=== PATIENT | female | born 1930 | race African-American/Black ===

== ENCOUNTER 2020-08-31 15:58 | Inpatient (IN) ==
[2020-08-31] MEDS ORDERED: SODIUM CHLORIDE 0.9% 500 ML IV STA (16:41)
[2020-08-31] MEDS ORDERED: cefTRIAXone 1,000 MG in SODIUM CHLORIDE 0.9% 100 ML IV STA (17:40)
[2020-08-31 18:09] LABS: Basophils % 0.1 % (0.0-0.8); Eosinophils # 0.1 10*3/uL (0.0-0.87); Eosinophils % 0.7 % (0.00-10.9); Hematocrit 45.3 VOL% (35.7-47.0); Hemoglobin 14.8 GM/DL (12.0-16.0); Immature Granulocytes % 0.5 %; Immature Granulocytes Absolute 0.04 #; Lymphocytes # 1.1 10*3/uL (1.4-4.0); Lymphocytes % 13.9 % (21.3-54.2); Mean Corpuscular HGB Conc 32.7 GM/DL (32-36); Mean Corpuscular Volume 97.6 FL (87-102); Monocytes % 12.3 % (1.7-12.7); Neutrophils % 72.5 % (38.7-73.9); Platelet Count 114 T/CUMM (130-400); Red Blood Count 4.64 MC/CUMM (3.8-5.5); Red Cell Distribution Width 13.8 % (9.3-17.3); White Blood Count 7.6 T/CUMM (4-12)
[2020-08-31 18:40] LABS: Bacteria,Urine Occasional /HPF (Few); Bilirubin,Urine Negative (Negative); Blood, Urine Negative (Negative); Glucose,Urine (UA) Negative (Negative); Ketones,Urine Negative (Negative); Nitrite,Urine Negative (Negative); Protein,Urine Negative; RBC,Urine 1 /HPF (0-4); Squamous Epithelial Cell,Urine Occasional /HPF (0-10); Urine Appearance CLEAR (Clear); Urine Color Yellow (Yellow); Urine Specific Gravity 1.003 (1.001-1.035); Urine Urobilinogen < 2.0 EU/DL (0.2-1.0); WBC,Urine 4 /HPF (0-6)
[2020-08-31 18:41] LABS: Albumin 2.3 G/DL (3.4-5.0); Bilirubin,Total 1.2 MG/DL (0.2-1.0); Calcium 11.2 MG/DL (8.5-10.1); Osmolality,Calculated 267.5 MOS/KG (273-304)
[2020-08-31 19:04] LABS: PT Patient Result 78.8 SECS (9.8-11.9)
[2020-08-31 19:08] LABS: INR 8.2
[2020-08-31] MEDS ORDERED: ONDANSETRON 4 MG/2 ML VIAL IV STA (19:24)
[2020-08-31] MEDS ORDERED: ONDANSETRON 4 MG/2 ML VIAL IV PRN (20:03)
[2020-08-31] MEDS ORDERED: traZODone 50 MG TABLET PO PRN (20:03)
[2020-08-31] MEDS ORDERED: guaiFENesin/DM ER 600-30 MG TABLET PO PRN (20:03)
[2020-08-31] MEDS ORDERED: NICOTINE 21 MG/24 HR PATCH TRANSDERM PRN (20:03)
[2020-08-31] MEDS ORDERED: hydrALAZINE 20 MG/1 ML VIAL IV PRN (20:03)
[2020-08-31] MEDS ORDERED: ACETAMINOPHEN 325 MG TABLET PO PRN (20:03)
[2020-08-31] MEDS ORDERED: diphenhydrAMINE CAP 25 MG CAPSULE PO PRN (20:03)
[2020-08-31] MEDS ORDERED: DEXTROSE 50% 25 GM/50 ML VIAL IV PRN (20:03)
[2020-08-31] MEDS ORDERED: GLUCAGON 1 MG VIAL IM PRN (20:03)
[2020-09-01 05:29] LABS: Basophils % 0.3 % (0.0-0.8); Eosinophils % 0.6 % (0.00-10.9); Hematocrit 42.4 VOL% (35.7-47.0); Hemoglobin 14.6 GM/DL (12.0-16.0); Immature Granulocytes % 0.4 %; Immature Granulocytes Absolute 0.03 #; Lymphocytes # 0.9 10*3/uL (1.4-4.0); Lymphocytes % 12.4 % (21.3-54.2); Mean Corpuscular HGB Conc 34.4 GM/DL (32-36); Mean Corpuscular Volume 94.2 FL (87-102); Monocytes % 13.1 % (1.7-12.7); Neutrophils % 73.2 % (38.7-73.9); Platelet Count 81 T/CUMM (130-400); Red Cell Distribution Width 13.9 % (9.3-17.3)
[2020-09-01] MEDS ORDERED: PHYTONADIONE 10 MG/1 ML AMP SUBCUT ONE (05:50)
[2020-09-01 06:08] LABS: Platelet Estimate Decreased
[2020-09-01 07:34] LABS: INR 1.2
[2020-09-01 07:55] LABS: PT Patient Result 12.6 SECS (9.8-11.9)
[2020-09-01] MEDS: SODIUM CHLORIDE 0.9% 1,000 ML IV SCH ×2 (08:16→08:21)
[2020-09-01 08:29] LABS: Albumin 1.8 G/DL (3.4-5.0); Bilirubin,Total 0.9 MG/DL (0.2-1.0); Calcium 10.2 MG/DL (8.5-10.1); Potassium 4.6 MMOL/L (3.5-5.1); Total Protein 5.5 G/DL (6.4-8.2)
[2020-09-01] MEDS: cefTRIAXone 1,000 MG in SYRINGE 1 EACH IV SCH (21:46)
[2020-09-02] MEDS: SODIUM CHLORIDE 0.9% 1,000 ML IV SCH ×2 (01:28→01:29)
[2020-09-02] MEDS: ALBUTEROL/IPRATROPIUM 3 ML NEB RESP TX PRN (19:55)
[2020-09-02] MEDS: cefTRIAXone 1,000 MG in SYRINGE 1 EACH IV SCH (20:08)
[2020-09-03] MEDS: SODIUM CHLORIDE 0.9% 1,000 ML IV SCH (12:57)
[2020-09-03] MEDS: cefTRIAXone 1,000 MG in SYRINGE 1 EACH IV SCH (20:29)
[2020-09-04] MEDS: SODIUM CHLORIDE 0.9% 1,000 ML IV SCH (08:46)
[2020-09-04] MEDS: ALBUTEROL/IPRATROPIUM 3 ML NEB RESP TX PRN (09:40)
[2020-09-04] MEDS: cefTRIAXone 1,000 MG in SYRINGE 1 EACH IV SCH (20:48)
[2020-09-05] MEDS: ALBUTEROL/IPRATROPIUM 3 ML NEB RESP TX PRN (09:00)
[2020-09-05 11:27] VITALS: BP 143/82
== END 2020-09-05 12:45 | disposition hospice, home (50) | DRG 597 ==
LOC: EDBD → EDUNIT# → N.ED 15:58 → N.EDINP 20:03 → N.4E 22:17
PROVIDERS: ADMIT Internal Medicine; ATTEND Internal Medicine